=== PATIENT | female | born 1990 | race Two or more races ===

== ENCOUNTER 2022-03-25 21:04 | Outpatient (CLI) | payer OTHER ==
[2022-03-25] MEDS ORDERED: PRENATAL + DHA1 EAC1 PO (21:45)
== END 2022-03-26 16:26 | disposition home or self-care (01) ==
LOC: OBS/DEL 21:04
PROVIDERS: ATTEND Obstetrics & Gynecology
DX: O36.8130 Decreased fetal movements, third trimester, not applicable or unspecified (principal); Z3A.37 37 weeks gestation of pregnancy